=== PATIENT | female | born 1990 | race Caucasian/White ===

== ENCOUNTER 2018-12-31 01:47 | Inpatient (IN) | payer OTHER ==
[~2018-12-31] VITALS: Ht 175.3 cm; Wt 83.9 kg
[2018-12-31] MEDS ORDERED: LR 1,000 ML IV ONE (01:59)
[2018-12-31] MEDS ORDERED: OXYTOCIN/0.9 % SODIUM CHLORIDE 1,000 ML IV SCH ×2 (01:59→20:34)
[2018-12-31] MEDS ORDERED: NALBUPHINE HCL 10 MG/ML AMP IVP PRN (02:00)
[2018-12-31 02:53] LABS: BASOPHILS # (AUTO) 0.1 K/uL (0.0-0.2); BASOPHILS % (AUTO) 0.4 % (0.0-2.0); EOSINOPHILS # (AUTO) 0.1 K/uL (0.0-0.4); EOSINOPHILS % (AUTO) 0.5 % (0.0-4.0); HEMATOCRIT 31.5 % (36-48); HEMOGLOBIN 10.5 g/dL (12.0-16.0); LYMPHOCYTES # (AUTO) 2.3 K/uL (1.0-5.5); LYMPHOCYTES % (AUTO) 14.7 % (20.5-51.5); MEAN CORPUSCULAR HEMOGLOBIN 28 pg (27-31); MEAN CORPUSCULAR HGB CONC 33 % (32-36); MEAN CORPUSCULAR VOLUME 84 fL (79.0-98.0); MONOCYTES # (AUTO) 0.9 K/uL (0.0-1.0); MONOCYTES % (AUTO) 5.6 % (1.7-9.3); NEUTROPHILS # (AUTO) 12.2 K/uL (1.8-7.7); NEUTROPHILS % (AUTO) 78.8 % (40.0-70.0); PLATELET COUNT (AUTO) 296 K/uL (130-430); RED BLOOD CELL COUNT(AUTO) 3.74 MIL/uL (4.2-6.2); RED CELL DISTRIBUTION WIDTH 15.2 % (9.0-15.0); WHITE BLOOD COUNT (AUTO) 15.5 K/uL (4.8-10.8)
[2018-12-31] MEDS ORDERED: ROPIVACAINE 0.2% 100 ML ONE ×3 (06:03→16:48)
[2018-12-31] MEDS ORDERED: fentaNYL CITRATE/PF 100 MCG/2 ML AMP ONE ×2 (06:03→10:08)
[2018-12-31] MEDS: LR 1,000 ML IV SCH ×2 (07:00→20:51)
[2018-12-31] MEDS ORDERED: LR 500 ML IV ONE (07:52)
[2018-12-31] MEDS ORDERED: FENT2mCg/mL-ROPIVA0.2%/NS EPID 100 ML EP SCH (08:00)
[2018-12-31] MEDS ORDERED: ONDANSETRON HCL 4 MG/2 ML VIAL IVP PRN (14:15)
[2018-12-31] MEDS ORDERED: ONDANSETRON HCL 4 MG/2 ML VIAL ONE (14:30)
[2018-12-31] MEDS ORDERED: fentaNYL CITRATE/PF 100 MCG/2 ML AMP IVP ONE (19:15)
[2018-12-31] MEDS ORDERED: MEPERIDINE HCL/PF 25 MG/ML DISP.SYRIN IVP PRN (19:15)
[2018-12-31] MEDS ORDERED: MEPERIDINE HCL/PF 50 MG/ML AMP ONE (19:25)
[2018-12-31] MEDS ORDERED: OXYTOCIN/0.9 % SODIUM CHLORIDE 1,000 ML IV ONE (20:34)
[2018-12-31] MEDS: OXYCODONE/ACETAMINOPHEN 5-325 TABLET PO PRN (20:45)
[2018-12-31] MEDS ORDERED: RHO(D) IMMUNE GLOBULIN/MALTOSE 1500 UNITS/1.3 ML (WINHRO) IM PRN (20:45)
[2018-12-31] MEDS ORDERED: HYDROCORTISONE 0.5%, 28.35 GM TOPICAL CREAM TP PRN (20:45)
[2018-12-31] MEDS ORDERED: OXYCODONE/ACETAMINOPHEN 5-325 TABLET PO PRN (20:45)
[2018-12-31] MEDS ORDERED: SENNOSIDES/DOCUSATE SODIUM 1 TAB TABLET(SENOKOT-S) PO PRN (20:45)
[2018-12-31] MEDS ORDERED: METHYLERGONOVINE MALEATE 0.2 MG TABLET PO PRN (20:45)
[2018-12-31] MEDS ORDERED: WITCH HAZEL LEAF 1 MED.PAD MED.PAD TP PRN (20:45)
[2018-12-31] MEDS ORDERED: DERMOPLAST SPRAY TP PRN (20:45)
[2018-12-31] MEDS ORDERED: LANOLIN 7 GM OINT. TP PRN (20:45)
[2018-12-31] MEDS ORDERED: ANUSOL 1 EA SUPP.RECT (PREPARATION H) RC PRN (20:45)
[2018-12-31] MEDS ORDERED: DIPH-TET-PERTUS Vaccine 0.5 ML VIAL (ADACEL) I.M. PRN (20:45)
[2018-12-31] MEDS ORDERED: OXYCODONE/ACETAMINOPHEN 5-325 TABLET ONE (20:54)
[2018-12-31] MEDS ORDERED: TEMAZEPAM 15 MG CAPSULE PO PRN (21:00)
[2018-12-31] MEDS: IBUPROFEN 600 MG TABLET PO SCH (23:18)
[2018-12-31] MEDS: DOCUSATE SODIUM 100 MG CAPSULE PO PRN (23:18)
[2019-01-01] MEDS: OXYCODONE/ACETAMINOPHEN 5-325 TABLET PO PRN (02:41)
[2019-01-01 05:38] VITALS: BP_SYST 128
[2019-01-01] MEDS: IBUPROFEN 600 MG TABLET PO SCH ×4 (06:11→23:21)
[2019-01-01 07:32] LABS: BASOPHILS % (AUTO) 0.1 % (0.0-2.0); EOSINOPHILS % (AUTO) 0.2 % (0.0-4.0); HEMATOCRIT 25.8 % (36-48); HEMOGLOBIN 8.4 g/dL (12.0-16.0); LYMPHOCYTES # (AUTO) 2.5 K/uL (1.0-5.5); LYMPHOCYTES % (AUTO) 11.3 % (20.5-51.5); MEAN CORPUSCULAR HEMOGLOBIN 28 pg (27-31); MEAN CORPUSCULAR HGB CONC 33 % (32-36); MEAN CORPUSCULAR VOLUME 85 fL (79.0-98.0); MONOCYTES # (AUTO) 0.8 K/uL (0.0-1.0); MONOCYTES % (AUTO) 3.7 % (1.7-9.3); NEUTROPHILS % (AUTO) 84.7 % (40.0-70.0); PLATELET COUNT (AUTO) 256 K/uL (130-430); RED BLOOD CELL COUNT(AUTO) 3.03 MIL/uL (4.2-6.2); RED CELL DISTRIBUTION WIDTH 15.3 % (9.0-15.0)
[2019-01-01 07:37] LABS: WHITE BLOOD COUNT (AUTO) 22.4 K/uL (4.8-10.8)
[2019-01-01] MEDS: DOCUSATE SODIUM 100 MG CAPSULE PO PRN (23:22)
[2019-01-02] MEDS: IBUPROFEN 600 MG TABLET PO SCH ×2 (06:02→11:44)
[2019-01-02] MEDS ORDERED: LIDOCAINE PF 1% 30ML(POUR BTL) INJ ONE (14:09)
[2019-01-02] MEDS ORDERED: MINERAL OIL 30 ML UDC PO ONE (14:09)
== END 2019-01-02 14:10 | disposition home or self-care (01) | DRG 807 ==
LOC: OBSVTOIN 01:47 → SPU 01:47
PROVIDERS: ADMIT Specialist; ATTEND Specialist
PROC: 10D07Z6 Extraction of Products of Conception, Vacuum, Via Natural or Artificial Opening (ICD-10-PCS; principal; 2018-12-31)
PROC: 3E0R3BZ Introduction of Anesthetic Agent into Spinal Canal, Percutaneous Approach (ICD-10-PCS; 2018-12-31)
PROC: 00HU33Z Insertion of Infusion Device into Spinal Canal, Percutaneous Approach (ICD-10-PCS; 2018-12-31)
PROC: 3E0234Z Introduction of Serum, Toxoid and Vaccine into Muscle, Percutaneous Approach (ICD-10-PCS; 2018-12-31)
PROC: 0HQ9XZZ Repair Perineum Skin, External Approach (ICD-10-PCS; 2018-12-31)
DX: O26.893 Other specified pregnancy related conditions, third trimester (principal); Z37.0 Single live birth; Z3A.39 39 weeks gestation of pregnancy; Z67.91 Unspecified blood type, Rh negative; O89.4 Spinal and epidural anesthesia-induced headache during the puerperium; O70.0 First degree perineal laceration during delivery
CPT/HCPCS: 36415; 81002-TC; 85025; 86592; 86870; 86886; 86900; 86901; 90715; J2001; J2175; J2405; J2590; J2790; J2795; J3010; J7120